=== PATIENT | male | born 1960 | race Caucasian/White ===

== ENCOUNTER 2019-07-29 13:04 | Emergency (ER) | payer OTHER ==
[2019-07-29 13:29] LABS: ABS Lymphocytes 1.3 10^3/ul (1.0-4.8); ABS Monocytes 0.5 10^3/ul (0-0.8); ABS Neutrophils 5.3 10^3/ul (1.5-7.7); Eosinophil % 0.6 %; Hematocrit 38 % (42-52); Hemoglobin 13.3 g/dL (14.0-18.0); Lymphocyte % 18.4 %; Mean Corpuscular HGB Conc 35 g/dL (31-36); Mean Corpuscular Hemoglobin 30 pg (27-31); Mean Corpuscular Volume 85 fL (80-94); Mean Platelet Volume 7.3 fL (7.4-10.4); Platelet Count 278 10^3/uL (150-450); Red Blood Count 4.44 10^6 /uL (4.18-5.48); Red Cell Distribution Width 13 % (10-15); White Blood Count 7.2 10^3/uL (3.5-10.8)
[2019-07-29 13:36] LABS: INR 1.09 (0.82-1.09)
--- OUTSIDE RECORDS SUMMARY | 2019-07-29 13:51 | XMS REPORT | Summary of Care ---
:1960 Author Organization [facility] Address [address] [address] Care Team Providers Name Role Phone Jefferson Gonsales Primary Care Provider Reason for Referral Refer to Department Only (Routine) Status Reason Specialty Diagnoses / Referred By Referred To Procedures Contact Contact Pending Review Gastroenterology Diagnoses Routine general medical examination at a health care facility Jefferson Gonsales MD [facility]astro[facility] [address] [place] [address] gy/Hepatology [address] [address] [address] Phone: [place], [place] [phone] Fax: Scheduling Instructions BP 122/70 | Pulse 64 | Ht 6' (1.829 m) | Wt 191 lb (86.6 kg) | SpO2 (!) 72 % | BMI 25.90 kg/m BMI Readings from Last 4 Encounters: 07/19/19 : 25.90 kg/m 06/18/18 : 25.23 kg/m 07/31/17 : 26.18 kg/m 05/26/17 : 25.58 kg/m Controlled Substance Medications: Anticoagulant Medications: Psychiatric/Antianxiety Medications: Antiretroviral Medications: Reason for Visit Reason Comments Physical patient here for routine physical. Encounter Details Date Type Department Care Team Description 07/19/2019 Office Visit [facility] Jefferson Gonsales, Routine general Medicine MD medical examination at [address] [facility] [address] [place] [address] [place] [address] [place] [address] (Primary Dx) [phone] Allergies No Known Allergiesdocumented as of this encounter (statuses as of 07/19/2019) Medications Medication Sig Dispensed Refills Start Date End Date Status Ascorbic Acid Take by 0 Active (VITAMIN C) 500 MG mouth DAILY. Oral Cap Multiple Vitamin Take by 0 Active (DAILY VITAMIN mouth DAILY. FORMULA PO) Fish Oil Does not by Does not 0 Active apply Oil apply route. GARLIC PO Take 1 Tab 0 Active by mouth DAILY. acetaminophen Take 650 mg 0 Active (TYLENOL) 325 MG Oral by mouth Tab EVERY FOUR HOURS NEEDED for Pain. DiphenhydrAMINE HCl Take by 0 Active (BENADRYL ALLERGY PO) mouth. Ibuprofen (ADVIL) 200 Take by 0 Active MG Oral Cap mouth. Loratadine Take 10 mg 0 Active (LORATADINE by mouth CHILDRENS) 5 MG/5ML EVERY Oral Syrup TWENTY-FOUR HOURS. Pseudoeph-Doxylamine- Take by 0 07/19/2019 Discontinued DM-APAP (NYQUIL mouth. MULTI-SYMPTOM PO) documented as of this encounter (statuses as of 07/19/2019) Active Problems Problem Noted Date Family history of colon cancer 04/22/2017 Overview: Mom in her 50s Colonoscopy 2014 Traumatic tear of medial meniscus of left knee 10/14/2016 History of sciatica 10/04/2016 documented as of this encounter (statuses as of 07/19/2019) Resolved Problems Problem Noted Date Resolved Date Arthralgia of left knee 03/04/2017 04/22/2017 Acute pain of left knee 10/01/2016 04/22/2017 Left anterior knee pain 10/01/2016 04/22/2017 Pre-diabetes 07/16/2016 04/22/2017 documented as of this encounter (statuses as of 07/19/2019) Immunizations Name Administration Dates Next Due TDAP Vaccine 08/29/2006 documented as of this encounter Social History Tobacco Use Types Packs/Day Years Used Date Never Smoker Smokeless Tobacco: Never Used Alcohol Use Drinks/Week oz/Week Comments Yes occassionally Sex Assigned at Date Recorded Not on file Job Start Date Occupation Industry Not on file Not on file Not on file Travel History Travel Start Travel End No recent travel history available. documented as of this encounter Last Filed Vital Signs Vital Sign Reading Time Taken Comments Blood Pressure 122/70 07/19/2019 8:14 AM EST Pulse 64 07/19/2019 8:14 AM EST Temperature - - Respiratory Rate - - Oxygen Saturation 72% 07/19/2019 8:14 AM EST Inhaled Oxygen Concentration - - Weight 86.6 kg (191 lb) 07/19/2019 8:14 AM EST Height 182.9 cm (6') 07/19/2019 8:14 AM EST Body Mass Index 25.9 07/19/2019 8:14 AM EST documented in this encounter Patient Instructions Patient InstructionsJefferson Gonsales MD - 07/19/2019 8:00 AM ESTGoal weight 180 pounds Blood work today Colonoscopy this year Dermatology Dr Hamlin, Dr Chan or Dr Molina The 6 recommendations below are much more powerful than any medication or vitamin available on the market: 1. Engage in at least 30 minutes of regular moderate physical activity every day. This means exerting yourself so that you become slightly short of breath and have difficulty speaking a full sentence when you are exercising. This could be walking, running, biking, swimming, hiking, or any other type of gym activity. 2. Eat at least 6 servings per day fruit and vegetable 3. Get at least 7 hours of restful sleep per night 4. Do not smoke tobacco or marijuana products 5. Drink no more than 2 serving of alcohol per day 6. Drink at least 8 full glasses of water per day documented in this encounter Progress Notes Jefferson Gonsales MD - 07/19/2019 8:00 AM EST SUBJECTIVE: Tomas Huynh is a 59-y.o. male for presenting for his annual checkup. He asks for colonoscopy blood work and dermatology referral for routine skin check Patient Active Problem List Diagnosis History of sciatica Traumatic tear of medial meniscus of left knee Family history of colon cancer Current Outpatient Medications Medication Sig acetaminophen (TYLENOL) 325 MG Oral Tab Take 650 mg by mouth EVERY FOUR HOURS NEEDED for Pain. Ascorbic Acid (VITAMIN C) 500 MG Oral Cap Take by mouth DAILY. DiphenhydrAMINE HCl (BENADRYL ALLERGY PO) Take by mouth. Fish Oil Does not apply Oil by Does not apply route. GARLIC PO Take 1 Tab by mouth DAILY. Ibuprofen (ADVIL) 200 MG Oral Cap Take by mouth. Loratadine (LORATADINE CHILDRENS) 5 MG/5ML Oral Syrup Take 10 mg by mouth EVERY TWENTY-FOUR HOURS. Multiple Vitamin (DAILY VITAMIN FORMULA PO) Take by mouth DAILY. No current facility-administered medications for this visit. Allergies: Patient has no known allergies. ROS: Feeling well. No dyspnea or chest pain on exertion. No abdominal pain, change in bowel habits,black or bloody stools. No urinary tract or prostatic symptoms. No neurological complaints. No new skin changes OBJECTIVE: The patient appears well, alert, oriented x 3, in no distress. BP 122/70 | Pulse 64 | Ht 6' (1.829 m) | Wt 191 lb (86.6 kg) | SpO2 (!) 72% | BMI 25.90 kg/m ENT normal. Neck supple. No adenopathy or thyromegaly. MICHELLE. Lungs are clear, good air entry, no wheezes, rhonchi or rales. S1 and S2 normal, no murmurs, regular rate and rhythm. Abdomen is soft without tenderness, guarding, mass or organomegaly. exam: no penile lesions or discharge, no testicular masses or tenderness, no hernias. Rectal and prostate exam: deferred, not clinically indicated. Extremities show no edema, normal peripheral pulses. Neurological is normal without focal findings. I note only benign skin findings. No unusual rashes or suspicious skin lesions noted. Nails appear normal. ICD-9-CM ICD-10-CM 1. Routine general medical examination at a health care facility V70.0 Z00.00 LIPID PROFILE COMPREHENSIVE METABOLIC PANEL PSA, TOTAL (FOLLOW-UP DIAGNOSTIC) REFER TO GI Patient Instructions Goal weight 180 pounds Blood work today Colonoscopy this year Dermatology Dr Hamlin, Dr Chan or Dr Molina The 6 recommendations below are much more powerful than any medication or vitamin available on the market: 1. Engage in at least 30 minutes of regular moderate physical activity every day. This means exerting yourself so that you become slightly short of breath and have difficulty speaking a full sentence when you are exercising. This could be walking, running, biking, swimming, hiking, or any other type of gym activity. 2. Eat at least 6 servings per day fruit and vegetable 3. Get at least 7 hours of restful sleep per night 4. Do not smoke tobacco or marijuana products 5. Drink no more than 2 serving of alcohol per day 6. Drink at least 8 full glasses of water per day documented in this encounter Plan of Treatment Name Type Priority Associated Diagnoses Order Schedule LIPID PROFILE Lab Routine Routine general medical Ordered: 07/19/2019 examination at a health care facility COMPREHENSIVE METABOLIC Lab Routine Routine general medical Ordered: 2019 PANEL examination at a health care facility PSA, TOTAL (FOLLOW-UP Lab Routine Routine general medical Ordered: 2019 DIAGNOSTIC) examination at a health care facility Name Type Priority Associated Diagnoses Order Schedule REFER TO GI Referral Routine Routine general medical Expected: 07/19/2019, examination at a health care Expires: 07/19/2020 facility Health Maintenance Due Date Last Done Comments HIV SCREENING 1977 ZOSTER IMMUNIZATION SERIES 02/18/2012 (1 of 2) DTaP/Tdap/Td Vaccines (2 - 08/29/2016 08/29/2006 Tdap) DIABETES SCREENING 08/18/2018 08/18/2017, 08/18/2017, 04/29/2017, Additional history exists LIPID DISORDER SCREENING 08/18/2018 08/18/2017, 08/13/2016 DEPRESSION SCREENING 07/19/2020 07/19/2019 Colonoscopy 04/22/2027 04/22/2017, 04/22/2014 HEPATITIS C SCREENING Completed 08/18/2017 HEPATITIS A IMMUNIZATION Aged Out No longer eligible SERIES based on patient's age to complete this topic HPV IMMUNIZATION SERIES Aged Out No longer eligible based on patient's age to complete this topic MENINGOCOCCAL VACCINE IMM Aged Out No longer eligible based on patient's age to complete this topic PNEUMOCOCCAL 0-64 YRS Aged Out No longer eligible based on patient's age to complete this topic documented as of this encounter Results Not on filedocumented in this encounter Visit Diagnoses Diagnosis Routine general medical examination at a health care facility documented in this encounter (Home) [facility] [phone] [place], [place] (Work) [address] documented as of this encounter"
[2019-07-29 14:10] LABS: Albumin 3.7 g/dL (3.2-5.2); Albumin/Globulin Ratio 1.8 (1-3); BUN/Creatinine Ratio 14.5 (8-20); EGFR African American 127.9 (>60); EGFR Non-African American 105.7 (>60); Globulin 2.1 g/dL (2-4); Potassium 3.6 mmol/L (3.5-5.0); Total Bilirubin 1.4 mg/dL (0.2-1.0); Total Protein 5.8 g/dL (6.4-8.9)
--- NOTE | 2019-07-29 15:08 | ED ---
Complex/Multi-Sys Presentation - HPI Summary HPI Summary: Patient is a 59 y/o M presenting to the ED for a chief complaint of right lower leg edema that began upon waking up at around 07:20 on 07/29/19. Patient reports generalized weakness, intermittent chest tightness, decreased urine output described as a "trickle," a feeling of being tremulous, dizziness, and lightheadedness. He also notes decreased sleep for the last 3 days. Patient reports recent stress. Patient elevated his R leg without relief. No aggravating or alleviating factors are reported. He believes his symptoms could be due to dehydration. Patient saw his PCP, Dr. Gonsales, at [facility] 2 weeks ago with bloodwork performed. PMHx is significant for pre-diabetes diagnosed 3 years ago which he was able to manage with a change in diet and exercise. FMHx is significant for cardiac disease, but he is unsure of a history of blood clots. His father at 48 y/o from a DC. He denies a cardiac stress test in the past. - History Of Current Complaint Chief Complaint: EDGeneral Time Seen by Provider: 07/29/19 14:48 Hx Obtained From: Patient Onset/Duration: Sudden Onset, Still Present Timing: Constant Severity Currently: Moderate Severity Initially: Moderate Associated Signs And Symptoms: Positive: Dizziness, Weakness - Generalized, Chest Pain - Tightness, Edema - Right lower leg - Allergies/Home Medications Allergies/Adverse Reactions: Allergies Allergy/AdvReac Type Severity Reaction Status Date / Time No Known Allergies Allergy Verified 07/29/19 13:05 Home Medications: Home Medications diPHENhydraMINE LIQ* [Benadryl LIQ*] 12.5 mg PO Q4H PRN 08/02/14 [History Confirmed 08/02/14] PMH/Surg Hx/FS Hx/Imm Hx Previously Healthy: Yes Endocrine/Hematology History: Denies: Hx Diabetes Cardiovascular History: Denies: Hx Hypertension, Hx Pacemaker/ICD History: Denies: Hx Renal Disease Sensory History: Denies: Hx Legally Blind, Hx Deafness, Hx Hearing Aid Opthamlomology History: Denies: Hx Legally Blind EENT History: Denies: Hx Deafness Psychiatric History: Denies: Hx Panic Disorder - Surgical History Surgical History: Yes Surgery Procedure, Year, and Place: Rt ANKLE - EXCESS BONE REMOVED- AGE 15 Infectious Disease History: No Infectious Disease History: Denies: Traveled Outside the [place] in Last 30 Days - Family History Known Family History: Positive: Cardiac Disease - Including DC Negative: Blood Disorder - Blood clots - Social History Occupation: Employed Full-time Lives: With Family Alcohol Use: None Hx Substance Use: No Substance Use Type: Reports: None Hx Tobacco Use: No Smoking Status (MU): Never Smoked Tobacco Review of Systems Positive: Chest Pain - Tightness Positive: other - Positive decreased urine output Positive: Edema - Right lower leg Neurological/Mental Status: Other - Positive, tremulous, dizziness, and lightheadedness Positive: Weakness - Generalized Psychological: Other - Positive decreased sleep All Other Systems Reviewed And Are Negative: Yes Physical Exam - Summary Physical Exam Summary: Constitutional: Well-developed, Well-nourished, Alert. (-) Distressed Skin: Warm, Dry HENT: Normocephalic; Atraumatic Eyes: Conjunctiva normal Neck: Musculoskeletal ROM normal neck. (-) JVD, (-) Stridor, (-) Nuchal rigidity Cardio: Rhythm regular, rate normal, Heart sounds normal; Intact distal pulses; Radial pulses are 2+ and symmetric. (-) Murmur Pulmonary/Chest wall: Effort normal. (-) Respiratory distress, (-) Wheezes, (-) Rales Abd: Soft, (-) tenderness, (-) Distension, (-) Guarding, (-) Rebound Musculoskeletal: Swelling of the right calf and trace edema of the right lower extremity, 2+DP pulse Lymph: (-) Cervical adenopathy Neuro: Alert, Oriented x3 Psych: Mood and affect Normal Triage Information Reviewed: Yes Vital Signs On Initial Exam: Initial Vitals Temp Pulse Resp BP Pulse Ox 98.8 F 90 18 145/76 99 07/29/19 13:06 07/29/19 13:06 07/29/19 13:06 07/29/19 13:06 07/29/19 13:06 Vital Signs Reviewed: Yes Procedures - Sedation Patient Received Moderate/Deep Sedation with Procedure: No Diagnostics - Vital Signs Vital Signs Temp Pulse Resp BP Pulse Ox 07/29/19 14:39 98.0 F 81 16 144/63 100 07/29/19 13:06 98.8 F 90 18 145/76 99 - Laboratory Lab Results: Lab Results 07/29/19 07/29/1920 Range/Units 13:20 13:20 13:20 WBC 7.2 (3.5-10.8) 10^3/uL RBC 4.44 (4.18-5.48) 10^6 /uL Hgb 13.3 L (14.0-18.0) g/dL Hct 38 L (42-52) % MCV 85 (80-94) fL MCH 30 (27-31) pg MCHC 35 (31-36) g/dL RDW 13 (10-15) % Plt Count 278 (150-450) 10^3/uL MPV 7.3 L (7.4-10.4) fL Neut % (Auto) 73.6 % Lymph % (Auto) 18.4 % Branch % (Auto) 7.0 % Eos % (Auto) 0.6 % Baso % (Auto) 0.4 % Absolute Neuts (auto) 5.3 (1.5-7.7) 10^3/ul Absolute Lymphs (auto) 1.3 (1.0-4.8) 10^3/ul Absolute Monos (auto) 0.5 (0-0.8) 10^3/ul Absolute Eos (auto) 0.0 (0-0.6) 10^3/ul Absolute Basos (auto) 0.0 (0-0.2) 10^3/ul Absolute Nucleated RBC 0.0 10^3/ul Nucleated RBC % 0.0 INR (Anticoag Therapy) 1.09 (0.82-1.09) Sodium 125 L (135-145) mmol/L Potassium 3.6 (3.5-5.0) mmol/L Chloride 94 L (101-111) mmol/L Carbon Dioxide 25 (22-32) mmol/L Anion Gap 6 (2-11) mmol/L BUN 11 (6-24) mg/dL Creatinine 0.76 (0.67-1.17) mg/dL Est GFR ( Amer) 127.9 (>60) Est GFR (Non-Af Amer) 105.7 (>60) BUN/Creatinine Ratio 14.5 (8-20) Glucose 106 H (70-100) mg/dL Calcium 8.0 L (8.6-10.3) mg/dL Total Bilirubin 1.40 H (0.2-1.0) mg/dL AST 25 (13-39) U/L ALT 18 (7-52) U/L Alkaline Phosphatase 40 (34-104) U/L Troponin I 0.00 (<0.03) ng/mL Total Protein 5.8 L (6.4-8.9) g/dL Albumin 3.7 (3.2-5.2) g/dL Globulin 2.1 (2-4) g/dL Albumin/Globulin Ratio 1.8 (1-3) Result Diagrams: 07/29/19 13:20 07/29/19 16:38 Lab Statement: Any lab studies that have been ordered have been reviewed, and results considered in the medical decision making process. - Radiology Chest X-ray Radiology Interpretation Completed By: Radiologist Summary of Radiographic Findings: Chest X-ray IMPRESSION: No acute cardiopulmonary process by radiograph. Reviewed by Dr. Moffett. - Ultrasound Venous Doppler Study Ultrasound Interpretation Completed By: Radiologist Summary of Ultrasound Findings: Venous Doppler Study IMPRESSION: NO EVIDENCE OF DEEP VENOUS THROMBOSIS IS IDENTIFIED. Reviewed by Dr. Moffett. - EKG 13:16 Cardiac Rate: NL - 79 BPM EKG Rhythm: Sinus Rhythm ST Segment: Normal Ectopy: None Summary of EKG Findings: An EKG at 13:16 reveals normal sinus rhythm with 79 BPM , T wave flattening in aVF, nml axis, nml intervals. No STEMI. No acute changes. . ED physician has reviewed and interpreted this EKG. Re-Evaluation - Re-Evaluation First Eval Re-Evaluation Time: 17:32 Change: Unchanged Comment: At 17:32, I updated the patient on their negative imaging findings. Complex Multi-Symp Course/Dx Course Of Treatment: 59 y/o male no significant past but history of present with right lower x-ray swelling, decreased urine output, and chest pain. - Vital signs stable, no acute distress. Exam with swelling of the right calf. Ultrasound does not show any evidence of DVT. Regarding decreasing output, patient reports dehydration and poor by mouth intake, patient did have a sodium of 125, likely secondary dehydration. Patient was given liter of fluids, repeat BMP with sodium of 126. Encourage by mouth intake. - Including chest pain, patient states he's been anxious, stressed to to current family events. No prior cardiac history, EKG unremarkable, chest x-ray negative. Troponin negative 2. Heart score - HEART Score. Based on a HEART score of 3 the patient has a low risk (<2% chance) of major adverse cardiac event within the next 6 weeks. I explained to the patient that based on the work-up today, their risk of heart attack is low and that he/she will be discharged with outpatient follow-up. Strict return precautions were discussed regarding worsening chest pain, new / atypical pain, shortness of breath, or any other serious concerns. Patient endorsed understanding and has no questions at this time. - Diagnoses Provider Diagnoses: Swelling of right lower extremity, Chest pain Discharge ED - Sign-Out/Discharge Documenting (check all that apply): Patient Departure - Discharge - Discharge Plan Condition: Stable Disposition: HOME Patient Education Materials: Chest Pain (ED), Leg Edema (ED) Referrals: Jefferson Gonsales MD [Primary Care Provider] - Additional Instructions: You were seen in the emergency department for chest pain. Your EKG (heart tracing), labs and chest x-ray did not show any cause for pain. Important that you follow up with you primary care doctor in the next 1-2 days to help schedule an outpatient stress test. Your ultrasound did not show any blood clots, if you have continued symptoms, please have this repeated in 2 weeks. Please return to the emergency department for continued chest pain, trouble breathing, passing out, or if you're concerned. - Billing Disposition and Condition Condition: STABLE Disposition: Home - Attestation Statements Document Initiated by Sage: Yes Documenting Scribe: Kerrie Boateng Provider For Whom Sage is Documenting (Include Credential): Lenore Moffett MD Scribe Attestation: I, Kerrie Boateng, scribed for Lenore Moffett MD on 07/29/19 at 1836. Scribe Documentation Reviewed: Yes Provider Attestation: The documentation as recorded by the Kerrie byers accurately reflects the service I personally performed and the decisions made by , Lenore Moffett MD Status of Scribe Document: Viewed
[2019-07-29] MEDS ORDERED: NS 0.9% 1000 ML** 1,000 ML IV ONE (15:22)
[2019-07-29 17:04] LABS: Calcium 8.1 mg/dL (8.6-10.3); EGFR African American 129.9 (>60); EGFR Non-African American 107.3 (>60); Potassium 3.7 mmol/L (3.5-5.0)
[2019-07-29 18:47] VITALS: BP 108/57
== END 2019-07-29 18:45 | disposition home or self-care (01) ==
LOC: ED 13:04
DX: M79.89 Other specified soft tissue disorders (principal); R07.9 Chest pain, unspecified
CPT/HCPCS: 36415; 71046; 80048; 80053; 84484; 85025; 85610; 93005; 96360; 99283